=== PATIENT | male | born 1955 | race African-American/Black ===

== ENCOUNTER 2017-02-14 18:35 | Emergency (ER) | payer MEDICAID, OTHER ==
[~2017-02-14] VITALS: Ht 190.5 cm; Wt 113.4 kg
[~2017-02-14 18:35] MED LIST: CLOT15CR4 TP; MUPI22OI2 TOP
[2017-02-14] MEDS ORDERED: KETOROLAC TROMETHAMINE 30 MG INJ IM ONE (19:00)
[2017-02-14] MEDS ORDERED: OXYCODONE/APAP 5-325 MG TABLET PO ONE (19:00)
[2017-02-14] MEDS ORDERED: ONDANSETRON ODT 4 MG TAB.RAPDIS SL ONE (19:00)
[2017-02-14] MEDS ORDERED: KETOROLAC TROMETHAMINE 30 MG INJ ONE (19:17)
[2017-02-14] MEDS ORDERED: ONDANSETRON ODT 4 MG TAB.RAPDIS ONE (19:17)
[2017-02-14] MEDS ORDERED: OXYCODONE/APAP 5-325 MG TABLET ONE (19:18)
--- NOTE | 2017-02-14 20:00 | NUR ---
Pt states that he is pain free currently.
--- NOTE | 2017-02-14 20:28 | NUR ---
Gave pt. RX and d/c instructions, verbalized understanding.
== END 2017-02-14 20:34 | disposition home or self-care (01) ==
LOC: ER 18:38
DX: M25.562 Pain in left knee (principal)
CPT/HCPCS: A4663; J1885; Q0162

== ENCOUNTER 2017-05-14 15:08 | Emergency (ER) | payer MEDICAID ==
[~2017-05-14] VITALS: Ht 190.5 cm; Wt 113.4 kg
[2017-05-14 17:10] VITALS: BP 125/74
--- NOTE | 2017-05-14 17:13 | NUR ---
Patient discharged to home in stable conditon. Written and verbal after care instructions given. Patient verbalizes understanding of instructions.
== END 2017-05-14 17:14 | disposition home or self-care (01) ==
LOC: ER 15:08
DX: J31.0 Chronic rhinitis (principal); L30.9 Dermatitis, unspecified
CPT/HCPCS: A4663

== ENCOUNTER 2017-05-15 06:30 | Emergency (ER) | payer MEDICAID ==
[~2017-05-15] VITALS: Ht 190.5 cm; Wt 113.4 kg
--- NOTE | 2017-05-15 06:54 | NUR ---
Patient discharged to home in stable conditon. Written and verbal after care instructions given. Patient verbalizes understanding of instructions.
== END 2017-05-15 06:55 | disposition home or self-care (01) ==
LOC: ER 06:34
DX: R09.89 Other specified symptoms and signs involving the circulatory and respiratory systems (principal)
CPT/HCPCS: A4663

== ENCOUNTER 2017-06-22 14:38 | Emergency (ER) | payer MEDICAID ==
[~2017-06-22] VITALS: Ht 190.5 cm; Wt 113.4 kg
--- NOTE | 2017-06-22 14:50 | NUR ---
PT CALLED IN 2X FOR TRIAGE - NOT IN WAITING ROOM.
--- NOTE | 2017-06-22 15:11 | NUR ---
DR BROWN AT THE BEDSIDE FOR MSE.
[2017-06-22 15:18] VITALS: BP 131/85
== END 2017-06-22 15:18 | disposition home or self-care (01) ==
LOC: ER 14:39
DX: Z48.00 Encounter for change or removal of nonsurgical wound dressing (principal); M79.89 Other specified soft tissue disorders
CPT/HCPCS: 99282; A4663

== ENCOUNTER 2017-12-13 06:59 | Emergency (ER) | payer MEDICAID ==
[~2017-12-13] VITALS: Ht 190.5 cm; Wt 113.4 kg
[2017-12-13] MEDS ORDERED: ACETAMINOPHEN ES 500 MG TABLET PO ONE (07:30)
--- NOTE | 2017-12-13 07:33 | NUR ---
PATIENT WAS SEEN BY MD FOR C/O EAR PROBLEMS. DC ,RX AND F/U INSTRUCTIONS GIVEN AND EXPLAINED TO PATIENT WHO STATE SHE UNDERSTANDS ALL INSTRUCTIONS.
[2017-12-13] MEDS ORDERED: ACETAMINOPHEN ES 500 MG TABLET ONE (07:34)
== END 2017-12-13 07:35 | disposition home or self-care (01) ==
LOC: ER 07:01
DX: H66.91 Otitis media, unspecified, right ear (principal)
CPT/HCPCS: 99283; A4663; A9150

== ENCOUNTER 2017-12-20 13:23 | Emergency (ER) | payer MEDICAID ==
[~2017-12-20] VITALS: Ht 190.5 cm; Wt 113.4 kg
[2017-12-20] MEDS ORDERED: diphenhydrAMINE 50 MG/1 ML VIAL ONE (15:28)
[2017-12-20] MEDS ORDERED: methylPREDNISolone ACETATE 40 MG VIAL ONE (15:28)
--- NOTE | 2017-12-20 15:28 | NUR ---
Patient discharged to home in stable conditon. Written and verbal after care instructions given. Patient verbalizes understanding of instructions. Ambulated from ER with stable gait. All belongings with patient. patient states he will take a Bus home.
[2017-12-20 15:29] VITALS: BP 141/78
[2017-12-20] MEDS ORDERED: diphenhydrAMINE 50 MG/1 ML VIAL IM ONE (15:30)
[2017-12-20] MEDS ORDERED: methylPREDNISolone ACETATE 40 MG VIAL IM ONE (15:30)
== END 2017-12-20 15:30 | disposition home or self-care (01) ==
LOC: ER 13:24
DX: L20.9 Atopic dermatitis, unspecified (principal)
CPT/HCPCS: A4663; J1030; J1200

== ENCOUNTER 2017-12-29 05:34 | Emergency (ER) | payer MEDICAID ==
[~2017-12-29] VITALS: Ht 190.5 cm; Wt 113.4 kg
--- NOTE | 2017-12-29 06:02 | NUR ---
PT PRESENTS TO ER W/ C/O PAIN AND RINGING IN RT EAR X2 WEEKS.
--- NOTE | 2017-12-29 06:10 | NUR ---
DR NOMAN CARTER MD AT BEDSIDE FOR MSE.
--- NOTE | 2017-12-29 06:27 | NUR ---
Patient discharged to home in stable conditon. Written and verbal after care instructions given. Patient verbalizes understanding of instructions. Pt ambulated from ER w/ steady gait. Pt took all personal belongings. No distress noted.
[2017-12-29 06:30] VITALS: BP 140/86
== END 2017-12-29 06:31 | disposition home or self-care (01) ==
LOC: ER 05:36
DX: H66.91 Otitis media, unspecified, right ear (principal)
CPT/HCPCS: 99283; A4663

== ENCOUNTER 2018-02-11 07:27 | Emergency (ER) | payer MEDICAID, OTHER ==
[~2018-02-11] VITALS: Ht 190.5 cm; Wt 113.4 kg
[2018-02-11] MEDS ORDERED: IBUPROFEN 600 MG TABLET PO ONE (08:00)
[2018-02-11] MEDS ORDERED: ACETAMINOPHEN 325 MG TABLET PO ONE (08:00)
[2018-02-11] MEDS ORDERED: AMOXICILLIN-CLAVUL 875-125MG TABLET PO ONE (08:00)
--- NOTE | 2018-02-11 08:03 | NUR ---
Patient discharged to home in stable conditon. Written and verbal after care instructions given. Patient verbalizes understanding of instructions.
[2018-02-11] MEDS ORDERED: IBUPROFEN 600 MG TABLET ONE (08:04)
[2018-02-11] MEDS ORDERED: ACETAMINOPHEN ES 500 MG TABLET ONE (08:04)
[2018-02-11] MEDS ORDERED: AMOXICILLIN-CLAVUL 875-125MG TABLET ONE (08:04)
== END 2018-02-11 08:20 | disposition home or self-care (01) ==
LOC: ER 07:27
DX: H93.11 Tinnitus, right ear (principal); H66.91 Otitis media, unspecified, right ear
CPT/HCPCS: 99284; A4663; A9150

== ENCOUNTER 2018-02-14 15:37 | Emergency (ER) | payer MEDICAID, OTHER ==
[~2018-02-14] VITALS: Ht 190.5 cm; Wt 113.4 kg
--- NOTE | 2018-02-14 16:08 | NUR ---
MD is at bedside evaluating the patient.
[2018-02-14] MEDS ORDERED: DEXAMETHASONE SOD PHOSPHATE 4 MG INJ IV ONE (16:15)
[2018-02-14] MEDS ORDERED: CEFTRIAXONE 1 G in IV DEXTROSE 5% 50 ML IV ONE (16:15)
[2018-02-14] MEDS ORDERED: DEXAMETHASONE SOD PHOSPHATE 10 MG INJ ONE (16:32)
[2018-02-14] MEDS ORDERED: CEFTRIAXONE 1 G VIAL ONE (16:32)
--- NOTE | 2018-02-14 16:42 | NUR ---
Patient is resting comfortably on gurney, NAD, IV medicine is infusing well
--- NOTE | 2018-02-14 17:43 | NUR ---
Patient is sleeping, easily arousable, NAD, pending disposition@this time
--- NOTE | 2018-02-14 18:16 | NUR ---
Patient discharged to home in stable conditon. Written and verbal after care instructions given to patient. Patient verbalizes understanding of instructions. IV removed. Catheter intact and site benign. Pressure and 4x4 gauze applied to site. No bleeding noted.
== END 2018-02-14 18:18 | disposition home or self-care (01) ==
LOC: ER 15:39
DX: H66.91 Otitis media, unspecified, right ear (principal)
CPT/HCPCS: 96365; 96375; 99284; A4663; J0696; J1100; J7060

== ENCOUNTER 2018-02-15 07:05 | Emergency (ER) | payer MEDICAID, OTHER ==
[~2018-02-15] VITALS: Ht 190.5 cm; Wt 113.4 kg
--- NOTE | 2018-02-15 07:33 | NUR ---
Dr. Soliman at the bedside for MSE.
[2018-02-15] MEDS ORDERED: ACETAMINOPHEN/CODEINE 300-30 MG TABLET PO ONE (07:45)
[2018-02-15] MEDS ORDERED: CEFTRIAXONE 1 G in IV DEXTROSE 5% 50 ML IV ONE (07:45)
[2018-02-15] MEDS ORDERED: ACETAMINOPHEN/CODEINE 300-30 MG TABLET ONE (07:51)
[2018-02-15] MEDS ORDERED: CEFTRIAXONE 1 G VIAL ONE (07:52)
--- NOTE | 2018-02-15 08:11 | NUR ---
Pt returned from CT scan. Pt stable and nad noted upon returning.
[2018-02-15] MEDS ORDERED: DEXAMETHASONE SOD PHOSPHATE 10 MG INJ ONE (08:31)
[2018-02-15] MEDS ORDERED: HYDROCODONE/APAP 5-325MG TABLET ONE (09:14)
[2018-02-15] MEDS ORDERED: DEXAMETHASONE SOD PHOSPHATE 4 MG INJ IV ONE (09:15)
[2018-02-15] MEDS ORDERED: HYDROCODONE/APAP 5-325MG TABLET PO ONE (09:15)
[2018-02-15] MEDS ORDERED: ONDANSETRON IV *ER 4 MG/2 ML VIAL IV ONE (09:45)
[2018-02-15] MEDS ORDERED: MORPHINE SULFATE 4 MG/1 ML DISP.SYRIN IV ONE (09:45)
[2018-02-15] MEDS ORDERED: MORPHINE SULFATE 4 MG/1 ML DISP.SYRIN ONE (09:59)
[2018-02-15] MEDS ORDERED: ONDANSETRON 4 MG/2 ML VIAL ONE (09:59)
--- NOTE | 2018-02-15 11:30 | NUR ---
Patient discharged to home in stable conditon. Written and verbal after care instructions given. Pt instructed not to drive. Patient verbalized understanding of instructions.
== END 2018-02-15 11:30 | disposition home or self-care (01) ==
LOC: ER 07:05
DX: H66.91 Otitis media, unspecified, right ear (principal); L30.9 Dermatitis, unspecified
CPT/HCPCS: 70486; 96365; 96375; 99284; A4663; J0696; J1100; J2270; J2405; J7060

== ENCOUNTER 2018-02-22 08:38 | Emergency (ER) | payer MEDICAID, OTHER ==
[~2018-02-22] VITALS: Ht 190.5 cm; Wt 113.4 kg
--- NOTE | 2018-02-22 08:56 | NUR ---
is at bedside doing the MSE.
[2018-02-22 09:26] VITALS: BP 118/75
--- NOTE | 2018-02-22 09:27 | NUR ---
Patient discharged to home in stable conditon. Written and verbal after care instructions given. Patient verbalizes understanding of instructions.
== END 2018-02-22 09:27 | disposition home or self-care (01) ==
LOC: ER 08:39
DX: H92.01 Otalgia, right ear (principal)
CPT/HCPCS: 99281; A4663

== ENCOUNTER 2018-04-11 06:36 | Emergency (ER) | payer MEDICAID ==
[~2018-04-11] VITALS: Ht 190.5 cm; Wt 113.4 kg
--- NOTE | 2018-04-11 06:55 | NUR ---
Report given to Enrrique Rodriguez LVN.
--- NOTE | 2018-04-11 06:55 | NUR ---
Dr. Saini at bedside for MSE.
[2018-04-11] MEDS ORDERED: KETOROLAC TROMETHAMINE 30 MG INJ ONE (07:10)
[2018-04-11] MEDS ORDERED: KETOROLAC TROMETHAMINE 30 MG INJ IM ONE (07:15)
--- NOTE | 2018-04-11 07:16 | NUR ---
Patient discharged to home in stable conditon. Written and verbal after care instructions given. Patient verbalizes understanding of instructions.
== END 2018-04-11 07:17 | disposition home or self-care (01) ==
LOC: ER 06:41
DX: H66.91 Otitis media, unspecified, right ear (principal)
CPT/HCPCS: 96372; 99283; J1885; A4663

== ENCOUNTER 2018-04-25 13:36 | Emergency (ER) | payer MEDICAID, OTHER ==
[~2018-04-25] VITALS: Ht 190.5 cm; Wt 113.4 kg
[2018-04-25] MEDS ORDERED: KETOROLAC TROMETHAMINE 30 MG INJ ONE (14:30)
[2018-04-25] MEDS ORDERED: KETOROLAC TROMETHAMINE 30 MG INJ IM ONE (14:30)
--- NOTE | 2018-04-25 14:34 | NUR ---
MSE COMPLETED, TORADOL ADMINISTERED, PT D/C'D HOME, PT AMBULATED W/O DIFF/TOOK ALL BELONGINGS.
[2018-04-25 14:35] VITALS: BP 133/7
== END 2018-04-25 14:40 | disposition home or self-care (01) ==
LOC: ER 13:38
DX: H92.01 Otalgia, right ear (principal)
CPT/HCPCS: 96372; 99283; J1885; A4663

== ENCOUNTER 2018-07-24 16:05 | Emergency (ER) | payer MEDICAID, OTHER ==
[~2018-07-24] VITALS: Ht 188 cm; Wt 113.4 kg
--- NOTE | 2018-07-24 16:19 | NUR ---
PATIENT WAS SEEN BY . DC, RX AND FOLLOW UP INSTRUCTIONS GIVEN AND EXPLAINED TO PATIENT WHO STATES HE UNDERSTANDS ALL INSTRUCTIONS
== END 2018-07-24 16:23 | disposition home or self-care (01) ==
LOC: ER 16:07
DX: H92.01 Otalgia, right ear (principal)
CPT/HCPCS: A4663

== ENCOUNTER 2018-10-19 15:17 | Emergency (ER) | payer MEDICAID, OTHER ==
[~2018-10-19] VITALS: Ht 190.5 cm; Wt 113.4 kg
--- NOTE | 2018-10-19 15:42 | NUR ---
PT A/OX4, PRESENTS TO THE ER C/O AN OPEN LEISION ON THE MIDDLE KNUCKLE OF HIS R HAND. PT REPORTS HE HAD A "CALLOUS" ON THE KNUCKLE AND ATTEMPTED TO "CUT A HOLE" IN IT. HE IS CURRENTLY ON PO CLINDAMYCIN SINCE 10/16/18 AND IS REQUESTING FOR IV ANTIBIOTICS TODAY. VSS. PT DENIES PAIN, C/P, SOB, N/V/D, DIZZINESS, HEADACHE.
--- NOTE | 2018-10-19 16:03 | NUR ---
EMMA BRITTON AT BEDSIDE FOR MSE.
[2018-10-19 16:16] VITALS: BP 111/72
--- NOTE | 2018-10-19 16:16 | NUR ---
Patient discharged to home in stable conditon. Written and verbal after care instructions given. Patient verbalizes understanding of instructions. ALL BELONGINGS W/ PT. PT SELF-AMBULATED W/O DIFFICUTLY.
== END 2018-10-19 16:17 | disposition home or self-care (01) ==
LOC: ER 15:17
DX: L84 Corns and callosities (principal)
CPT/HCPCS: A4663

== ENCOUNTER 2018-12-25 17:09 | Emergency (ER) | payer MEDICAID, OTHER ==
[~2018-12-25] VITALS: Ht 190.5 cm; Wt 113.4 kg
--- NOTE | 2018-12-25 18:27 | NUR ---
Patient discharged to home in stable conditon. Written and verbal after care instructions given. Patient verbalizes understanding of instructions.PT WALKS IN STEADY GAIT.
== END 2018-12-25 18:29 | disposition home or self-care (01) ==
LOC: ER 17:11
DX: H60.91 Unspecified otitis externa, right ear (principal); H66.91 Otitis media, unspecified, right ear; I87.2 Venous insufficiency (chronic) (peripheral)
CPT/HCPCS: A4663

== ENCOUNTER 2019-01-01 18:14 | Emergency (ER) | payer OTHER ==
[~2019-01-01] VITALS: Ht 190.5 cm; Wt 113.4 kg
[2019-01-01] MEDS ORDERED: AMOX-430 PO (18:53)
[2019-01-01] MEDS ORDERED: CIPR7.5D EACH EAR (18:53)
--- NOTE | 2019-01-01 19:05 | NUR ---
Dr. Solano at bedside for MSE.
[2019-01-01] MEDS ORDERED: HYDROMORPHONE 1 MG/1 ML DISP.SYRIN IM ONE (19:15)
[2019-01-01] MEDS ORDERED: ONDANSETRON 4 MG/2 ML VIAL IM ONE (19:15)
[2019-01-01] MEDS ORDERED: DEXAMETHASONE SOD PHOSPHATE 4 MG INJ IM ONE (19:15)
[2019-01-01] MEDS ORDERED: HYDROMORPHONE 1 MG/1 ML DISP.SYRIN ONE (19:22)
[2019-01-01] MEDS ORDERED: ONDANSETRON 4 MG/2 ML VIAL ONE ×2 (19:22→19:27)
[2019-01-01] MEDS ORDERED: DEXAMETHASONE SOD PHOSPHATE 4 MG INJ ONE (19:22)
--- NOTE | 2019-01-01 19:40 | NUR ---
Patient discharged to home in stable conditon. Written and verbal after care instructions given. Patient verbalizes understanding of instructions. Pt ambulated out of ER with steady gait, no acute signs of distress, VSS, all belongings taken.
[2019-01-01 19:41] VITALS: BP 130/90
== END 2019-01-01 19:42 | disposition home or self-care (01) ==
LOC: ER 18:14
DX: H60.91 Unspecified otitis externa, right ear (principal); Z79.2 Long term (current) use of antibiotics; Z79.899 Other long term (current) drug therapy
CPT/HCPCS: 96372 ×3; 99283; J1100; J1170; J2405; A4663

== ENCOUNTER 2019-02-04 14:13 | Emergency (ER) | payer MEDICAID, OTHER ==
[~2019-02-04] VITALS: Ht 190.5 cm; Wt 113.4 kg
[~2019-02-04 14:13] MED LIST changes: +AMOX-430 PO; +CIPR7.5D EACH EAR; -CLOT15CR4 TP; -MUPI22OI2 TOP
[2019-02-04 15:55] LABS: BASOPHILS % (AUTO) 0.8 % (0.0-2.0); EOSINOPHILS # (AUTO) 0.3 K/uL (0.0-0.7); EOSINOPHILS % (AUTO) 4.1 % (0.0-7.0); HEMATOCRIT 38.4 % (36.7-47.1); HEMOGLOBIN 12.8 g/dL (12.5-16.3); LYMPHOCYTES # (AUTO) 1.3 K/uL (20.0-40.0); LYMPHOCYTES % (AUTO) 20.3 % (20.5-51.5); MEAN CORPUSCULAR HEMOGLOBIN 28.4 uug (23.8-33.4); MEAN CORPUSCULAR HGB CONC 33 g/dL (32.5-36.3); MEAN CORPUSCULAR VOLUME 84.9 fL (73.0-96.2); MONOCYTES # (AUTO) 0.4 K/uL (2.0-10.0); NEUTROPHILS # (AUTO) 4.2 K/uL (1.8-8.9); NEUTROPHILS % (AUTO) 67.8 % (38.5-71.5); PLATELET COUNT (AUTO) 357 K/uL (152-348); RED BLOOD CELL COUNT(AUTO) 4.52 MIL/uL (4.06-5.63); WHITE BLOOD COUNT (AUTO) 6.2 K/uL (3.6-10.2)
[2019-02-04 16:02] LABS: CREATININE 1.1 mg/dL (0.6-1.3)
[2019-02-04 16:08] LABS: BILIRUBIN,DIRECT 0.2 mg/dL (0.0-0.2); BILIRUBIN,TOTAL 1.2 mg/dL (0.2-1.0); TOTAL PROTEIN, SERUM 7.4 g/dL (6.4-8.2)
--- NOTE | 2019-02-04 16:46 | NUR ---
Patient discharged to home in stable conditon. Written and verbal after care instructions given. Patient verbalizes understanding of instructions.
== END 2019-02-04 16:51 | disposition home or self-care (01) ==
LOC: ER 14:13
DX: R19.7 Diarrhea, unspecified (principal); Z79.2 Long term (current) use of antibiotics; Z79.899 Other long term (current) drug therapy
CPT/HCPCS: 36415; 85025; A4663

== ENCOUNTER 2019-02-23 10:53 | Emergency (ER) | payer MEDICAID ==
[~2019-02-23] VITALS: Ht 190.5 cm; Wt 113.4 kg
[2019-02-23] MEDS ORDERED: diphenhydrAMINE 50 MG/1 ML VIAL ONE (11:26)
--- NOTE | 2019-02-23 11:27 | NUR ---
PATIENT WAS SEEN BY MD. MEDICATION GIVEN ORDERED. PATIENT AWARE THAT [place]NADRYL CAN MAKE HIM SLEEPY. PATIENT STATES HE DOES NOT DRIVE AT ALL.. TAKES "[employer]". DC, RX AND FOLLOW UP INSTRUCTIONS GIVEN AND EXPLAINED TO PATIENT WHO STATES HE UNDERSTANDS ALL INSTRUCTIONS
[2019-02-23] MEDS ORDERED: diphenhydrAMINE 50 MG/1 ML VIAL IM ONE (11:30)
== END 2019-02-23 11:48 | disposition home or self-care (01) ==
LOC: ER 10:53
DX: R21 Rash and other nonspecific skin eruption (principal); Z79.2 Long term (current) use of antibiotics; Z79.899 Other long term (current) drug therapy
CPT/HCPCS: 96372; 99283; J1200; A4663

== ENCOUNTER 2019-05-29 15:22 | Emergency (ER) | payer MEDICAID ==
[~2019-05-29] VITALS: Ht 190.5 cm; Wt 113.4 kg
[2019-05-29] MEDS ORDERED: KETOROLAC TROMETHAMINE 30 MG INJ IM ONE (16:00)
[2019-05-29] MEDS ORDERED: KETOROLAC TROMETHAMINE 30 MG INJ ONE (16:06)
[2019-05-29 16:12] VITALS: BP 133/81
--- NOTE | 2019-05-29 16:12 | NUR ---
Patient discharged to home in stable conditon. Written and verbal after care instructions given. Patient verbalizes understanding of instructions. Patient ambulated with stable gait.
== END 2019-05-29 16:12 | disposition home or self-care (01) ==
LOC: ER 15:22
DX: R60.9 Edema, unspecified (principal); B95.8 Unspecified staphylococcus as the cause of diseases classified elsewhere; Z79.2 Long term (current) use of antibiotics; Z79.899 Other long term (current) drug therapy
CPT/HCPCS: 96372; 99283; J1885; A4663

== ENCOUNTER 2019-06-05 12:54 | Emergency (ER) | END 2019-06-05 13:44 | disposition home or self-care (01) | DX: H92.09 Otalgia, unspecified ear (principal); Z79.2 Long term (current) use of antibiotics; Z79.899 Other long term (current) drug therapy ==

== ENCOUNTER 2019-08-22 11:24 | Emergency (ER) | payer MEDICAID ==
[~2019-08-22] VITALS: Ht 190.5 cm; Wt 113.4 kg
--- NOTE | 2019-08-22 12:02 | NUR ---
Patient discharged to home in stable conditon. Written and verbal after care instructions given. Patient verbalizes understanding of instructions. pt walks in steady gait.
== END 2019-08-22 12:06 | disposition home or self-care (01) ==
LOC: ER 11:24
DX: J40 Bronchitis, not specified as acute or chronic (principal); Z79.2 Long term (current) use of antibiotics; Z79.899 Other long term (current) drug therapy
CPT/HCPCS: A4663

== ENCOUNTER 2019-08-29 15:39 | Emergency (ER) | payer MEDICAID ==
[~2019-08-29] VITALS: Ht 190.5 cm; Wt 113.4 kg
--- NOTE | 2019-08-29 15:40 | NUR ---
Patient ambulated with steady gait. A/Ox3. Speech clear, and speaks in complete sentences. Patient came for c/o right ear pain x2 days and is c/o hearing "humming" noises intermittently. Patient denies any acute loss of balance, denies any doubled or blurred vision. Pain in right ear 8/10, intermittent achy pain. Respiratory even and unlabored, no cough no sob noted. Denies any cp or palpitations. Denies any n/v/d, or any gu distress at this time. Patient in bed, side rails up x2, bed in lowest position, call ight within reach. Safety precautions implemented per protocol.
--- NOTE | 2019-08-29 16:07 | NUR ---
Patient discharged to home in stable conditon. Written and verbal after care instructions given. Patient verbalizes understanding of instructions. Patient ambulated, stready gait, no acute distress noted.
[2019-08-29 16:15] VITALS: BP 146/92
== END 2019-08-29 16:20 | disposition home or self-care (01) ==
LOC: ER 15:44
DX: H60.91 Unspecified otitis externa, right ear (principal); Z79.2 Long term (current) use of antibiotics
CPT/HCPCS: A4663

== ENCOUNTER 2019-11-17 11:16 | Emergency (ER) | payer MEDICAID ==
[~2019-11-17] VITALS: Ht 190.5 cm; Wt 113.4 kg
--- NOTE | 2019-11-17 11:33 | NUR ---
MD@bedside, medical screening exam in progress
[2019-11-17] MEDS ORDERED: KETOROLAC TROMETHAMINE 30 MG INJ ONE (11:40)
--- NOTE | 2019-11-17 11:42 | NUR ---
Patient discharged to home in stable condition. Written and verbal after care instructions given. Patient verbalizes understanding of instructions. Stressed follow up or return to ER for worsening s/s.PT WALKS N STEADY GAIT.
[2019-11-17] MEDS ORDERED: KETOROLAC TROMETHAMINE 30 MG INJ IM ONE (11:45)
== END 2019-11-17 11:43 | disposition home or self-care (01) ==
LOC: ER 11:16
DX: H92.01 Otalgia, right ear (principal); R03.0 Elevated blood-pressure reading, without diagnosis of hypertension
CPT/HCPCS: 96372; 99283; J1885; A4663

== ENCOUNTER 2019-12-26 14:30 | Emergency (ER) | payer MEDICAID ==
[~2019-12-26] VITALS: Ht 190.5 cm; Wt 113.4 kg
--- NOTE | 2019-12-26 15:06 | NUR ---
Pt states he has had ringing in his ears for > 1 year, was just seen for same at [facility]. this AM and got prescription for same as well. Pt denies dizziness, CP, SOB, and n/v, hearing problems, no other complaints, no distress noted.
[2019-12-26] MEDS ORDERED: methylPREDNISolone SOD SUCC 125 MG/2 ML VIAL ONE (15:28)
[2019-12-26] MEDS: methylPREDNISolone SOD SUCC 125 MG/2 ML VIAL IM ONE (15:29)
--- NOTE | 2019-12-26 15:38 | NUR ---
Gave pt d/c instructions, pt verbalized understanding. 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
== END 2019-12-26 15:40 | disposition home or self-care (01) ==
LOC: ER 14:30
DX: H93.19 Tinnitus, unspecified ear (principal)
CPT/HCPCS: 96372; 99283; J2930; A4663

== ENCOUNTER 2020-05-25 18:31 | Emergency (ER) | payer MEDICAID ==
[~2020-05-25] VITALS: Ht 190.5 cm; Wt 113.4 kg
--- NOTE | 2020-05-25 19:28 | NUR ---
MSE COMPLETED, ACI/RX X 1 GIVEN. PT AMBULATED W/O DIFF TOOK ALL BELONGINGS.
[2020-05-25 19:29] VITALS: BP 122/68
== END 2020-05-25 19:30 | disposition home or self-care (01) ==
LOC: ER 18:32
DX: Z76.0 Encounter for issue of repeat prescription (principal); L98.491 Non-pressure chronic ulcer of skin of other sites limited to breakdown of skin; M79.641 Pain in right hand
CPT/HCPCS: A4663

== ENCOUNTER 2020-06-06 15:47 | Emergency (ER) | payer MEDICAID ==
[~2020-06-06] VITALS: Ht 193 cm; Wt 113.4 kg
[2020-06-06 16:10] VITALS: BP 150/85
== END 2020-06-06 16:10 | disposition home or self-care (01) ==
LOC: ER 15:48
DX: R21 Rash and other nonspecific skin eruption (principal); L98.499 Non-pressure chronic ulcer of skin of other sites with unspecified severity; Z76.0 Encounter for issue of repeat prescription
CPT/HCPCS: A4663

== ENCOUNTER 2020-08-28 15:25 | Emergency (ER) | payer MEDICAID ==
[~2020-08-28] VITALS: Ht 193 cm; Wt 117.9 kg
--- NOTE | 2020-08-28 15:56 | NUR ---
Dr Zavaleta at the bedside for MSE.
[2020-08-28] MEDS ORDERED: BACI30OI9 TP (16:28)
[2020-08-28 17:24] VITALS: BP 114/78
--- NOTE | 2020-08-28 17:24 | NUR ---
Patient discharged to home in stable condition. Written and verbal after care instructions given. Patient verbalizes understanding of instructions. Stressed follow up or return to ER for worsening s/s.
== END 2020-08-28 17:25 | disposition home or self-care (01) ==
LOC: ER 15:25
DX: R21 Rash and other nonspecific skin eruption (principal)
CPT/HCPCS: A4663

== ENCOUNTER 2020-08-30 12:41 | Emergency (ER) | payer MEDICAID ==
[~2020-08-30] VITALS: Ht 190.5 cm; Wt 113.4 kg
[~2020-08-30 12:41] MED LIST changes: +BACI30OI9 TP
[2020-08-30] MEDS ORDERED: PANT40TA2 PO (13:01)
[2020-08-30] MEDS: PANTOPRAZOLE SODIUM 40 MG TABLET.DR PO ONE (13:06)
--- NOTE | 2020-08-30 13:26 | NUR ---
pt had a hospital lunch tray with good apetite, tolerated well, denies any pain or any other complain.Patient discharged to home in stable condition. Written and verbal after care instructions given. Patient verbalizes understanding of instructions. Stressed follow up or return to ER for worsening s/s.
== END 2020-08-30 13:28 | disposition home or self-care (01) ==
LOC: ER 12:41
DX: K29.70 Gastritis, unspecified, without bleeding (principal)
CPT/HCPCS: A4663

== ENCOUNTER 2020-09-01 10:34 | Emergency (ER) | payer MEDICAID ==
[~2020-09-01] VITALS: Ht 182.9 cm; Wt 113.4 kg
[~2020-09-01 10:34] MED LIST changes: +PANT40TA2 PO
--- NOTE | 2020-09-01 10:45 | NUR ---
at bedside for assessment
[2020-09-01] MEDS ORDERED: DICY20TA11 PO (10:51)
[2020-09-01] MEDS ORDERED: DICYCLOMINE HCL LIQ 10 MG/5 ML UDC ONE (10:57)
--- NOTE | 2020-09-01 10:59 | NUR ---
Patient discharged to home in stable condition. Able to ambulate with steady gait. Written and verbal after care instructions given. Patient verbalizes understanding of instructions. Stressed follow up or return to ER for worsening s/s.
[2020-09-01] MEDS ORDERED: DICYCLOMINE HCL LIQ 10 MG/5 ML UDC PO ONE (11:00)
[2020-09-01 11:02] VITALS: BP 141/82
== END 2020-09-01 11:04 | disposition home or self-care (01) ==
LOC: ER 10:34
DX: K29.70 Gastritis, unspecified, without bleeding (principal)
CPT/HCPCS: A4663

== ENCOUNTER 2020-09-12 10:55 | Emergency (ER) | payer MEDICAID ==
[~2020-09-12] VITALS: Ht 182.9 cm; Wt 113.4 kg
[~2020-09-12 10:55] MED LIST changes: +DICY20TA11 PO
[2020-09-12] MEDS ORDERED: PANTOPRAZOLE SODIUM 40 MG VIAL IV ONE (11:15)
[2020-09-12] MEDS ORDERED: IOHEXOL 300MG/ML 100 ML INFUS..BTL ONE (11:29)
[2020-09-12] MEDS ORDERED: IV NORMAL SALINE 250 ML IV ONE (11:29)
[2020-09-12] MEDS ORDERED: SWABABLE VALVE TRANSFER SET EA MC ONE (11:29)
[2020-09-12 11:34] LABS: BASOPHILS % (AUTO) 0.8 % (0.0-2.0); EOSINOPHILS # (AUTO) 0.2 K/uL (0.0-0.7); HEMATOCRIT 40.7 % (36.7-47.1); HEMOGLOBIN 13.7 g/dL (12.5-16.3); LYMPHOCYTES # (AUTO) 1.1 K/uL (20.0-40.0); LYMPHOCYTES % (AUTO) 20.9 % (20.5-51.5); MEAN CORPUSCULAR HEMOGLOBIN 29.4 uug (23.8-33.4); MEAN CORPUSCULAR HGB CONC 34 g/dL (32.5-36.3); MEAN CORPUSCULAR VOLUME 87.1 fL (73.0-96.2); MONOCYTES # (AUTO) 0.4 K/uL (2.0-10.0); MONOCYTES % (AUTO) 7.8 % (0.0-11.0); NEUTROPHILS # (AUTO) 3.6 K/uL (1.8-8.9); NEUTROPHILS % (AUTO) 67.5 % (38.5-71.5); PLATELET COUNT (AUTO) 510 K/uL (152-348); RED BLOOD CELL COUNT(AUTO) 4.67 MIL/uL (4.06-5.63); WHITE BLOOD COUNT (AUTO) 5.3 K/uL (3.6-10.2)
[2020-09-12] MEDS ORDERED: PANTOPRAZOLE SODIUM 40 MG VIAL ONE (11:38)
[2020-09-12 11:48] LABS: BILIRUBIN,DIRECT 0.1 mg/dL (0.0-0.2); BILIRUBIN,TOTAL 0.6 mg/dL (0.2-1.0); CREATININE 1.1 mg/dL (0.6-1.3); POTASSIUM 3.8 mmol/L (3.5-5.1)
[2020-09-12] MEDS ORDERED: OMEP40CA13 PO (12:49)
--- NOTE | 2020-09-12 13:05 | NUR ---
Patient discharged to home in stable condition. Written and verbal after care instructions given. Patient verbalizes understanding of instructions. Stressed follow up or return to ER for worsening s/s.pt walks in steady gait. pt says feels better.
[2020-09-12 13:08] VITALS: BP 132/84
== END 2020-09-12 13:10 | disposition home or self-care (01) ==
LOC: ER 10:56
DX: K57.91 Diverticulosis of intestine, part unspecified, without perforation or abscess with bleeding (principal); T14.8XXA Other injury of unspecified body region, initial encounter; X58.XXXA Exposure to other specified factors, initial encounter; Y92.89 Other specified places as the place of occurrence of the external cause; D64.9 Anemia, unspecified
CPT/HCPCS: 36415; 74177; 80048; 80076; 83690; 85025; 96374; 99285; C9113; Q9967; A4663; J7050

== ENCOUNTER 2021-09-22 11:55 | Emergency (ER) | payer MEDICAID ==
[~2021-09-22] VITALS: Ht 190.5 cm; Wt 113.4 kg
[~2021-09-22 11:55] MED LIST changes: +OMEP40CA21 PO
[2021-09-22] MEDS ORDERED: NAPR-1192 PO (12:07)
--- NOTE | 2021-09-22 12:44 | NUR ---
Pt c/o right foot and toes swelling x 1 mo, no pain, wearing compression garment x 11 days and also taking Naproxen 220mg. no other complaints, no distress noted.
[2021-09-22] MEDS ORDERED: IBUP-1957 PO (12:56)
--- NOTE | 2021-09-22 13:01 | NUR ---
Gave pt RX and d/c instructions, pt verbalized understanding.
== END 2021-09-22 13:02 | disposition home or self-care (01) ==
LOC: ER 11:55
DX: M79.671 Pain in right foot (principal); M25.571 Pain in right ankle and joints of right foot
CPT/HCPCS: A4663

== ENCOUNTER 2021-10-12 17:57 | Emergency (ER) | payer MEDICAID ==
[~2021-10-12] VITALS: Ht 190.5 cm; Wt 113.4 kg
[~2021-10-12 17:57] MED LIST changes: -AMOX-430 PO; -BACI30OI9 TP; -CIPR7.5D EACH EAR; -DICY20TA11 PO; +IBUP-1957 PO; +NAPR-1192 PO; -OMEP40CA21 PO; -PANT40TA2 PO
--- NOTE | 2021-10-12 18:00 | NUR ---
Patient ambulatory, complaints of right ankle pain 5/10 started yesterday. Denies nausea,vomiting, chest pain. Vitals stable.
--- NOTE | 2021-10-12 18:05 | NUR ---
MD at bedside, medical screening exam in progress.
[2021-10-12] MEDS ORDERED: KETOROLAC TROMETHAMINE 60 MG INJ IM ONE ×2 (18:30→18:32)
--- NOTE | 2021-10-12 19:10 | NUR ---
Ultrasound at bedside.
[2021-10-12] MEDS ORDERED: HYDR-4209 PO ×2 (20:43→20:45)
--- NOTE | 2021-10-12 21:13 | NUR ---
Patient discharged to home in stable condition. Written and verbal after care instructions given. Patient verbalizes understanding of instructions. Stressed follow up or return to ER for worsening s/s. Patient out of ER with steady gait, no acute signs of distress, VSS, provided with copies of ultrasound results, all belongings taken.
[2021-10-12 21:14] VITALS: BP 145/88
== END 2021-10-12 21:15 | disposition home or self-care (01) ==
LOC: ER 17:59
DX: M25.571 Pain in right ankle and joints of right foot (principal); R60.0 Localized edema; R03.0 Elevated blood-pressure reading, without diagnosis of hypertension
CPT/HCPCS: 93925; 93970; 96372; 99285; J1885; A4663

== ENCOUNTER 2021-11-01 12:43 | Emergency (ER) | payer MEDICAID ==
[~2021-11-01] VITALS: Ht 190.5 cm; Wt 113.4 kg
[~2021-11-01 12:43] MED LIST changes: +HYDR-4209 PO
--- NOTE | 2021-11-01 13:00 | NUR ---
MD at bedside, medical screening exam in progress.
[2021-11-01 14:49] VITALS: BP 125/70
== END 2021-11-01 14:50 | disposition home or self-care (01) ==
LOC: ER 12:43
DX: R22.43 Localized swelling, mass and lump, lower limb, bilateral (principal); R60.0 Localized edema; Z79.1 Long term (current) use of non-steroidal anti-inflammatories (NSAID); Z79.899 Other long term (current) drug therapy
CPT/HCPCS: A4663

== ENCOUNTER 2021-12-19 15:13 | Emergency (ER) | payer MEDICAID ==
[~2021-12-19] VITALS: Ht 185.4 cm; Wt 90.7 kg
--- NOTE | 2021-12-19 15:31 | NUR ---
MD@bedside, medical screening exam in progress
[2021-12-19] MEDS ORDERED: FLUORESCEIN SODIUM 1 MG STRIP ONE (15:43)
[2021-12-19] MEDS ORDERED: TETRACAINE HCL 0.5% OPHT DROP 2 ML BOTTLE ONE (15:43)
[2021-12-19] MEDS ORDERED: FLUORESCEIN SODIUM 1 MG STRIP OP ONE (15:45)
[2021-12-19] MEDS ORDERED: TETRACAINE HCL 0.5% OPHT DROP 2 ML BOTTLE OP ONE (15:45)
[2021-12-19] MEDS ORDERED: VALA10002 PO (16:09)
[2021-12-19] MEDS ORDERED: OFLO5DRO5 EACH EAR (16:09)
[2021-12-19] MEDS ORDERED: IBUP-1955 PO (16:12)
--- NOTE | 2021-12-19 16:18 | NUR ---
Patient discharged to home in stable condition with brisk steady gait. Written and verbal after care instructions given. Patient verbalized understanding and compliance of instructions. Stressed follow up with primary doctor or return to ER for worsening s/s.
[2021-12-19 16:43] VITALS: BP 126/80
== END 2021-12-19 16:18 | disposition home or self-care (01) ==
LOC: ER 15:13
DX: H92.03 Otalgia, bilateral (principal)
CPT/HCPCS: A4663

== ENCOUNTER 2022-03-18 08:30 | Emergency (ER) | payer MEDICAID ==
[~2022-03-18] VITALS: Ht 190.5 cm; Wt 117.9 kg
[~2022-03-18 08:30] MED LIST changes: +IBUP-1955 PO; +OFLO5DRO5 EACH EAR; +VALA10002 PO
--- NOTE | 2022-03-18 08:48 | NUR ---
PT IS IN ROOM #4B. DR OCHOA EVALUATED THE PT.
[2022-03-18] MEDS ORDERED: KETOROLAC TROMETHAMINE 30 MG INJ ONE (08:55)
[2022-03-18] MEDS ORDERED: KETOROLAC TROMETHAMINE 30 MG INJ IM ONE (09:00)
[2022-03-18 09:01] VITALS: BP 125/65
== END 2022-03-18 09:01 | disposition home or self-care (01) ==
LOC: ER 08:30
DX: M25.471 Effusion, right ankle (principal); M25.571 Pain in right ankle and joints of right foot
CPT/HCPCS: 99283; 96372; J1885; A4663

== ENCOUNTER 2022-05-11 16:48 | Emergency (ER) | payer MEDICARE, OTHER ==
[~2022-05-11] VITALS: Ht 190.5 cm; Wt 117.9 kg
[2022-05-11] MEDS ORDERED: DICY10CA13 PO (17:36)
[2022-05-11] MEDS ORDERED: DICYCLOMINE HCL 10 MG CAPSULE PO SCH (17:45)
[2022-05-11] MEDS ORDERED: DICYCLOMINE HCL 20 MG TABLET ONE (17:50)
== END 2022-05-11 17:51 | disposition home or self-care (01) ==
LOC: ER 16:48
DX: R14.0 Abdominal distension (gaseous) (principal); R03.0 Elevated blood-pressure reading, without diagnosis of hypertension
CPT/HCPCS: A4663

== ENCOUNTER 2022-05-18 10:27 | Emergency (ER) | payer MEDICARE, OTHER ==
[~2022-05-18] VITALS: Ht 190.5 cm; Wt 113.4 kg
[~2022-05-18 10:27] MED LIST changes: +DICY10CA13 PO
--- NOTE | 2022-05-18 10:45 | NUR ---
Pt ambulatory to room 3, MSE done by .
[2022-05-18] MEDS ORDERED: DICY10CA13 PO (10:59)
== END 2022-05-18 11:11 | disposition home or self-care (01) ==
LOC: ER 10:29
DX: R14.0 Abdominal distension (gaseous) (principal); Z76.0 Encounter for issue of repeat prescription
CPT/HCPCS: A4663

== ENCOUNTER 2022-05-25 13:42 | Emergency (ER) | payer MEDICARE, OTHER ==
[~2022-05-25] VITALS: Ht 190.5 cm; Wt 113.4 kg
[2022-05-25] MEDS ORDERED: SIMETHICONE 80 MG TAB.CHEW PO ONE (14:30)
[2022-05-25] MEDS ORDERED: SIMETHICONE 80 MG TAB.CHEW ONE (14:39)
[2022-05-25 14:58] LABS: HEMATOCRIT 37.3 % (36.7-47.1); MEAN CORPUSCULAR HEMOGLOBIN 28.5 uug (23.8-33.4); MEAN CORPUSCULAR VOLUME 85.4 fL (73.0-96.2); PLATELET COUNT (AUTO) 498 K/uL (152-348)
[2022-05-25 15:15] LABS: POTASSIUM 3.7 mmol/L (3.5-5.1)
[2022-05-25 15:20] LABS: BILIRUBIN,DIRECT 0.2 mg/dL (0.0-0.2); BILIRUBIN,TOTAL 0.6 mg/dL (0.2-1.0); TOTAL PROTEIN, SERUM 6.9 g/dL (6.4-8.2)
[2022-05-25] MEDS ORDERED: SIME80TA15 PO (15:43)
--- NOTE | 2022-05-25 15:58 | NUR ---
Gave pt RX and d/c instructions, pt verbalized understanding.
== END 2022-05-25 16:00 | disposition home or self-care (01) ==
LOC: ER 13:42
DX: R19.7 Diarrhea, unspecified (principal)
CPT/HCPCS: 36415; 83690; 85025; A4663

== ENCOUNTER 2022-07-17 13:57 | Emergency (ER) | payer MEDICARE, OTHER ==
[~2022-07-17] VITALS: Ht 190.5 cm; Wt 113.4 kg
[~2022-07-17 13:57] MED LIST changes: +SIME80TA15 PO
[2022-07-17] MEDS ORDERED: FLUORESCEIN SODIUM 1 MG STRIP ONE (14:19)
[2022-07-17] MEDS ORDERED: TETRACAINE HCL 0.5% OPHT DROP 2 ML BOTTLE ONE (14:19)
[2022-07-17] MEDS ORDERED: KETOROLAC TROMETHAMINE 15 MG INJ IM ONE (14:30)
[2022-07-17] MEDS ORDERED: KETOROLAC TROMETHAMINE 15 MG INJ ONE (14:31)
== END 2022-07-17 15:25 | disposition home or self-care (01) ==
LOC: ER 13:57
DX: H57.9 Unspecified disorder of eye and adnexa (principal); H57.11 Ocular pain, right eye
CPT/HCPCS: 99283; 96372; J1885; A4663

== ENCOUNTER 2022-09-14 08:59 | Emergency (ER) | payer MEDICARE, OTHER ==
[~2022-09-14] VITALS: Ht 190.5 cm; Wt 113.4 kg
--- NOTE | 2022-09-14 09:42 | NUR ---
Pt seen by . Safety measures in place. Will continue to monitor.
[2022-09-14] MEDS ORDERED: FLUT16SP16 BNOSTRILS (09:51)
[2022-09-14] MEDS ORDERED: MUPI15CR TP (09:51)
--- NOTE | 2022-09-14 09:52 | NUR ---
patient given prescriptions and discharge instructions. Understood and signed by patient.
[2022-09-14 09:54] VITALS: BP 138/90
== END 2022-09-14 09:55 | disposition home or self-care (01) ==
LOC: ER 08:59
DX: J34.89 Other specified disorders of nose and nasal sinuses (principal); L98.9 Disorder of the skin and subcutaneous tissue, unspecified; Z76.0 Encounter for issue of repeat prescription; Z79.1 Long term (current) use of non-steroidal anti-inflammatories (NSAID); Z79.2 Long term (current) use of antibiotics; Z79.899 Other long term (current) drug therapy
CPT/HCPCS: A4663

== ENCOUNTER 2022-09-28 11:45 | Emergency (ER) | payer MEDICARE, OTHER ==
[~2022-09-28] VITALS: Ht 190.5 cm; Wt 113.4 kg
[~2022-09-28 11:45] MED LIST changes: +FLUT16SP16 BNOSTRILS; +MUPI15CR TP
--- NOTE | 2022-09-28 12:19 | NUR ---
Pt seen by . Safety measures in place. Will continue to monitor.
[2022-09-28] MEDS ORDERED: SULF1TAB48 PO (12:26)
[2022-09-28 12:31] VITALS: BP 135/87
== END 2022-09-28 12:31 | disposition home or self-care (01) ==
LOC: ER 11:45
DX: R21 Rash and other nonspecific skin eruption (principal); L73.9 Follicular disorder, unspecified; Z79.899 Other long term (current) drug therapy; Z79.1 Long term (current) use of non-steroidal anti-inflammatories (NSAID)
CPT/HCPCS: A4663

== ENCOUNTER 2023-01-04 09:23 | Emergency (ER) | payer MEDICARE, OTHER ==
[~2023-01-04] VITALS: Ht 190.5 cm; Wt 113.4 kg
[~2023-01-04 09:23] MED LIST changes: +SULF1TAB48 PO
[2023-01-04 09:30] VITALS: O2SAT 99
--- NOTE | 2023-01-04 09:34 | NUR ---
On arrival to ER, patient immediately wants to "pee", urine cup provided. Dr [email or web address].
[2023-01-04] MEDS ORDERED: CEPH500T PO (09:56)
[2023-01-04] MEDS ORDERED: NAPR-1164 PO (09:57)
[2023-01-04] MEDS ORDERED: KETOROLAC TROMETHAMINE 30 MG INJ IM ONE (10:00)
[2023-01-04] MEDS ORDERED: KETOROLAC TROMETHAMINE 30 MG INJ ONE (10:01)
--- NOTE | 2023-01-04 10:09 | NUR ---
Patient discharged to home by Dr Saini in stable condition with brisk steady gait. Written and verbal after care instructions given. Patient verbalized understanding and compliance of instructions. Stressed follow up with primary doctor or return to ER for worsening s/s.
== END 2023-01-04 10:12 | disposition home or self-care (01) ==
LOC: ER 09:26
DX: M54.50 Low back pain, unspecified (principal); Z79.899 Other long term (current) drug therapy; Z79.1 Long term (current) use of non-steroidal anti-inflammatories (NSAID); Z79.2 Long term (current) use of antibiotics
CPT/HCPCS: 99285; 76882; 96372; J1885; A4663

== ENCOUNTER 2023-03-16 09:11 | Emergency (ER) | payer MEDICARE, OTHER ==
[~2023-03-16] VITALS: Ht 190.5 cm; Wt 113.4 kg
[~2023-03-16 09:11] MED LIST changes: +CEPH500T PO
[2023-03-16] MEDS ORDERED: MORPHINE SULFATE 2 MG/1 ML DISP.SYRIN ONE (09:45)
[2023-03-16] MEDS ORDERED: diphenhydrAMINE 50 MG/1 ML VIAL IM ONE (09:45)
[2023-03-16] MEDS ORDERED: MORPHINE SULFATE 2 MG/1 ML DISP.SYRIN IM ONE (09:45)
[2023-03-16] MEDS ORDERED: diphenhydrAMINE 50 MG/1 ML VIAL ONE (09:51)
[2023-03-16] MEDS ORDERED: CIPR-262 PO (09:52)
[2023-03-16] MEDS ORDERED: CIPR10DR RIGHT EAR (09:52)
[2023-03-16 09:56] VITALS: BP 138/93; O2SAT 99
== END 2023-03-16 09:57 ==
LOC: ER 09:13
DX: H92.01 Otalgia, right ear (principal); Z79.2 Long term (current) use of antibiotics; Z79.899 Other long term (current) drug therapy
CPT/HCPCS: 99284; 96372 ×2; J1200; J2270; A4663

== ENCOUNTER 2023-04-09 14:46 | Emergency (ER) | payer MEDICARE, OTHER ==
[~2023-04-09] VITALS: Ht 190.5 cm; Wt 113.4 kg
[~2023-04-09 14:46] MED LIST changes: +CIPR-262 PO; +CIPR10DR RIGHT EAR
[2023-04-09] MEDS ORDERED: CIPR-262 PO ×2 (16:02→16:03)
[2023-04-09] MEDS ORDERED: FLUT16SP16 BNOSTRILS (16:02)
[2023-04-09] MEDS ORDERED: CIPR10DR RIGHT EAR (16:02)
[2023-04-09 16:10] VITALS: BP 143/90; TEMP 98.4; O2SAT 99
== END 2023-04-09 16:10 | disposition home or self-care (01) ==
LOC: ER 14:46
DX: H93.13 Tinnitus, bilateral (principal); Z79.1 Long term (current) use of non-steroidal anti-inflammatories (NSAID); Z79.2 Long term (current) use of antibiotics; Z79.899 Other long term (current) drug therapy
CPT/HCPCS: A4606; A4663

== ENCOUNTER 2023-05-12 09:46 | Emergency (ER) | payer MEDICARE, OTHER ==
[~2023-05-12] VITALS: Ht 190.5 cm; Wt 113.4 kg
[2023-05-12] MEDS ORDERED: KETOROLAC TROMETHAMINE 30 MG INJ IM ONE (10:30)
[2023-05-12] MEDS ORDERED: KETOROLAC TROMETHAMINE 30 MG INJ ONE (10:36)
[2023-05-12 10:43] VITALS: BP 150/92; O2SAT 100
[2023-05-12] MEDS ORDERED: IBUP-1955 PO (17:14)
== END 2023-05-12 10:44 | disposition home or self-care (01) ==
LOC: ER 09:46
DX: M25.562 Pain in left knee (principal); R22.42 Localized swelling, mass and lump, left lower limb; Z79.2 Long term (current) use of antibiotics; Z79.1 Long term (current) use of non-steroidal anti-inflammatories (NSAID); Z79.899 Other long term (current) drug therapy
CPT/HCPCS: 99283; 96372; J1885; A4606; A4663

== ENCOUNTER 2023-05-18 16:36 | Emergency (ER) | payer MEDICARE, OTHER ==
[~2023-05-18] VITALS: Ht 185.4 cm; Wt 99.8 kg
[2023-05-18] MEDS ORDERED: KETOROLAC TROMETHAMINE 30 MG INJ IM ONE (18:00)
[2023-05-18] MEDS ORDERED: NAPR500T6 PO (18:02)
[2023-05-18] MEDS ORDERED: KETOROLAC TROMETHAMINE 30 MG INJ ONE (18:12)
[2023-05-18 18:36] VITALS: BP 144/79; O2SAT 98
== END 2023-05-18 19:17 | disposition home or self-care (01) ==
LOC: ER 16:36
DX: R21 Rash and other nonspecific skin eruption (principal); M25.562 Pain in left knee; M25.561 Pain in right knee; G89.29 Other chronic pain; Z79.1 Long term (current) use of non-steroidal anti-inflammatories (NSAID); Z79.2 Long term (current) use of antibiotics; Z79.899 Other long term (current) drug therapy
CPT/HCPCS: A4606; A4663; J1885

== ENCOUNTER 2023-06-05 15:04 | Emergency (ER) | payer MEDICARE, OTHER ==
[~2023-06-05] VITALS: Ht 185.4 cm; Wt 99.8 kg
[~2023-06-05 15:04] MED LIST changes: +NAPR500T6 PO
[2023-06-05] MEDS ORDERED: TRAM50TA2 PO (21:09)
[2023-06-05] MEDS ORDERED: FLUT16SP BNOSTRILS (21:09)
[2023-06-05] MEDS ORDERED: HYDROMORPHONE 1 MG/1 ML DISP.SYRIN ONE (21:12)
[2023-06-05] MEDS ORDERED: HYDROMORPHONE 1 MG/1 ML DISP.SYRIN IM ONE (21:15)
[2023-06-05 21:31] VITALS: BP 128/80; TEMP 98.2; O2SAT 98
== END 2023-06-05 21:32 | disposition home or self-care (01) ==
LOC: ER 15:07
DX: M17.12 Unilateral primary osteoarthritis, left knee (principal); J34.89 Other specified disorders of nose and nasal sinuses; Z76.0 Encounter for issue of repeat prescription; Z98.890 Other specified postprocedural states; Z79.899 Other long term (current) drug therapy
CPT/HCPCS: A4606; A4663; J1170

== ENCOUNTER 2023-06-13 05:52 | Emergency (ER) | payer MEDICARE, OTHER ==
[~2023-06-13] VITALS: Ht 190.5 cm; Wt 117.9 kg
[~2023-06-13 05:52] MED LIST changes: +FLUT16SP BNOSTRILS; +TRAM50TA2 PO
[2023-06-13] MEDS ORDERED: ALBU18HF2 INH (07:09)
[2023-06-13] MEDS ORDERED: D-ME473S63 PO (07:09)
[2023-06-13 07:42] VITALS: BP 145/74; TEMP 98.2; O2SAT 96
== END 2023-06-13 07:44 | disposition home or self-care (01) ==
LOC: ER 05:55
DX: J20.8 Acute bronchitis due to other specified organisms (principal); B97.89 Other viral agents as the cause of diseases classified elsewhere; Z79.1 Long term (current) use of non-steroidal anti-inflammatories (NSAID); Z79.2 Long term (current) use of antibiotics; Z79.899 Other long term (current) drug therapy
CPT/HCPCS: A4606; A4663

== ENCOUNTER 2023-08-07 15:42 | Emergency (ER) | payer MEDICARE, OTHER ==
[~2023-08-07] VITALS: Ht 190.5 cm; Wt 117.9 kg
[~2023-08-07 15:42] MED LIST changes: +ALBU18HF2 INH; +D-ME473S63 PO
[2023-08-07 16:05] VITALS: O2SAT 98
[2023-08-07] MEDS ORDERED: KETOROLAC TROMETHAMINE 30 MG INJ ONE (17:18)
[2023-08-07] MEDS: KETOROLAC TROMETHAMINE 30 MG INJ IM ONE (17:20)
== END 2023-08-07 18:02 | disposition home or self-care (01) ==
LOC: ER 15:44
DX: L30.9 Dermatitis, unspecified (principal); Z98.890 Other specified postprocedural states; Z79.899 Other long term (current) drug therapy
CPT/HCPCS: 99283; 96372; J1885; A4606; A4663; C1758

== ENCOUNTER 2023-10-09 16:17 | Emergency (ER) | payer MEDICARE, OTHER ==
[~2023-10-09] VITALS: Ht 190.5 cm; Wt 117.9 kg
[2023-10-09 16:21] VITALS: O2SAT 97
[2023-10-09] MEDS ORDERED: diphenhydrAMINE 50 MG/1 ML VIAL ONE (17:03)
[2023-10-09] MEDS ORDERED: methylPREDNISolone SOD SUCC 40 MG/ML VIAL ONE (17:04)
[2023-10-09] MEDS: diphenhydrAMINE 50 MG/1 ML VIAL IM ONE (17:07)
[2023-10-09] MEDS: methylPREDNISolone SOD SUCC 40 MG/ML VIAL IM ONE (17:07)
== END 2023-10-09 18:07 | disposition home or self-care (01) ==
LOC: ER 16:28
DX: S00.81XA Abrasion of other part of head, initial encounter (principal); L30.9 Dermatitis, unspecified; Z98.890 Other specified postprocedural states; Z79.899 Other long term (current) drug therapy; X58.XXXA Exposure to other specified factors, initial encounter; Y93.89 Activity, other specified; Y92.89 Other specified places as the place of occurrence of the external cause; Y99.8 Other external cause status
CPT/HCPCS: 99284; 96372 ×2; J1200; J2920; A4606; A4663

== ENCOUNTER 2024-04-16 14:09 | Emergency (ER) | payer MEDICARE, OTHER ==
[~2024-04-16] VITALS: Ht 190.5 cm; Wt 113.4 kg
[2024-04-16] MEDS ORDERED: PRED50TA PO (15:57)
[2024-04-16] MEDS ORDERED: ONDANSETRON 4 MG/2 ML VIAL ONE (16:05)
[2024-04-16] MEDS ORDERED: MORPHINE SULFATE 2 MG/1 ML DISP.SYRIN ONE (16:06)
[2024-04-16] MEDS: ONDANSETRON 4 MG/2 ML VIAL IM ONE (16:10)
[2024-04-16] MEDS: MORPHINE SULFATE 2 MG/1 ML DISP.SYRIN IM ONE (16:10)
[2024-04-16 16:21] VITALS: BP 155/88; TEMP 207.1; O2SAT 99
== END 2024-04-16 16:22 | disposition home or self-care (01) ==
LOC: ER 14:09
DX: M17.12 Unilateral primary osteoarthritis, left knee (principal); Z79.624 Long term (current) use of inhibitors of nucleotide synthesis; Z79.52 Long term (current) use of systemic steroids; Z98.890 Other specified postprocedural states; Z88.7 Allergy status to serum and vaccine
CPT/HCPCS: 99284; 96372 ×2; J2405; J2270; A4606; A4663

== ENCOUNTER 2024-04-25 09:32 | Emergency (ER) | payer MEDICARE, OTHER ==
[~2024-04-25] VITALS: Ht 190.5 cm; Wt 113.4 kg
[~2024-04-25 09:32] MED LIST changes: +PRED50TA PO
[2024-04-25] MEDS ORDERED: HYDR-4209 PO (10:51)
[2024-04-25 11:06] VITALS: BP 155/74; O2SAT 100
== END 2024-04-25 11:07 | disposition home or self-care (01) ==
LOC: ER 09:33
DX: M25.562 Pain in left knee (principal); M17.12 Unilateral primary osteoarthritis, left knee; F32.A Depression, unspecified; Z79.624 Long term (current) use of inhibitors of nucleotide synthesis; Z79.52 Long term (current) use of systemic steroids; Z98.890 Other specified postprocedural states; Z88.7 Allergy status to serum and vaccine
CPT/HCPCS: A4606; A4663

== ENCOUNTER 2024-05-15 12:59 | Emergency (ER) | payer MEDICARE, OTHER ==
[~2024-05-15] VITALS: Ht 190.5 cm; Wt 113.4 kg
[2024-05-15] MEDS ORDERED: AZIT500T PO (14:03)
[2024-05-15] MEDS ORDERED: AZITHROMYCIN 250 MG TABLET ONE (14:09)
[2024-05-15] MEDS: AZITHROMYCIN 250 MG TABLET PO ONE (14:11)
[2024-05-15 15:03] VITALS: BP 148/91; TEMP 97.6; O2SAT 97
== END 2024-05-15 15:04 | disposition home or self-care (01) ==
LOC: ER 12:59
DX: J18.9 Pneumonia, unspecified organism (principal); M17.12 Unilateral primary osteoarthritis, left knee; Z79.624 Long term (current) use of inhibitors of nucleotide synthesis; Z79.52 Long term (current) use of systemic steroids; Z98.890 Other specified postprocedural states; Z79.899 Other long term (current) drug therapy; Z88.7 Allergy status to serum and vaccine
CPT/HCPCS: 71045; A4606; A4663; Q0144

== ENCOUNTER 2024-07-26 16:08 | Emergency (ER) | payer MEDICARE, OTHER ==
[~2024-07-26] VITALS: Ht 190.5 cm; Wt 104.3 kg
[~2024-07-26 16:08] MED LIST changes: +AZIT500T PO
[2024-07-26] MEDS ORDERED: FLUT16SP BNOSTRILS (21:01)
[2024-07-26 21:10] VITALS: BP 128/68; O2SAT 98
== END 2024-07-26 21:10 | disposition home or self-care (01) ==
LOC: ER 16:08
DX: J31.0 Chronic rhinitis (principal); G89.29 Other chronic pain; M19.90 Unspecified osteoarthritis, unspecified site; Z79.52 Long term (current) use of systemic steroids; Z79.624 Long term (current) use of inhibitors of nucleotide synthesis; Z88.7 Allergy status to serum and vaccine; Z98.890 Other specified postprocedural states; Z87.2 Personal history of diseases of the skin and subcutaneous tissue; Z60.2 Problems related to living alone
CPT/HCPCS: A4606; A4663